=== PATIENT | female | born 1945 | race Caucasian/White ===

== ENCOUNTER 2017-01-18 13:21 | Emergency (ER) | payer OTHER ==
[2017-01-18 14:35] LABS: HEMOGLOBIN 12.5 gm/dl (12.3-15.3); RED BLOOD COUNT 4.19 M/UL (4.00-5.10); WHITE BLOOD COUNT 8.2 K/UL (4.5-11.0)
[2017-01-18 15:07] LABS: BUN/CREATININE RATIO 17 (0-10)
== END 2017-01-18 16:30 | disposition home or self-care (01) ==
LOC: ER1 13:21
PROVIDERS: Physician Assistant
DX: R53.81 Other malaise (principal); R53.83 Other fatigue; R42 Dizziness and giddiness; Z79.899 Other long term (current) drug therapy
CPT/HCPCS: 36415; 80053; 81001; 82550; 82553; 83874; 84443; 84484; 85025; 86403; 93005; 99285

== ENCOUNTER 2020-12-28 15:12 | Emergency (ER) | payer OTHER ==
[2020-12-28 15:39] LABS: HEMOGLOBIN 12.7 gm/dl (12.3-15.3); RED BLOOD COUNT 4.27 M/UL (4.00-5.10); WHITE BLOOD COUNT 15.5 K/UL (4.5-11.0)
[2020-12-28] MEDS ORDERED: OMNICEF 300 MG300 MG PO (18:01)
[2020-12-28] MEDS ORDERED: PERCOCET 5-3251 EACH PO (18:03)
[2020-12-28] MEDS ORDERED: ZOFRAN ODT 4 MG4 MG PO (18:03)
== END 2020-12-28 18:50 | disposition home or self-care (01) ==
LOC: ER1 15:12
PROVIDERS: Family Medicine
DX: N13.2 Hydronephrosis with renal and ureteral calculous obstruction (principal)
CPT/HCPCS: 80053; 81001; 83690; 85025; 96374; 99284; J2405

== ENCOUNTER 2021-01-05 10:56 | Emergency (ER) | payer OTHER ==
[~2021-01-05 10:56] MED LIST: OMNICEF 300 MG300 MG PO; PERCOCET 5-3251 EACH PO; ZOFRAN ODT 4 MG4 MG PO
[2021-01-05 11:58] LABS: HEMOGLOBIN 11.8 gm/dl (12.3-15.3); RED BLOOD COUNT 3.98 M/UL (4.00-5.10); WHITE BLOOD COUNT 12.9 K/UL (4.5-11.0)
[2021-01-05] MEDS ORDERED: ZOFRAN ODT 4 MG4 MG PO (13:43)
== END 2021-01-05 14:35 | disposition home or self-care (01) ==
LOC: ER1 10:56
PROVIDERS: Family Medicine
DX: N20.1 Calculus of ureter (principal); R11.0 Nausea
CPT/HCPCS: 74019; 80053; 81001; 83605; 85025; 87040; 96374; 96375; 99284; J1885; J2405